=== PATIENT | male | born 1945 | race Caucasian/White ===

== ENCOUNTER → 2018-01-07 | Outpatient (CLI) | payer MEDICARE ==
[~2018-01-07] MED LIST: ASP81CT PO; ASPI-875 PO; CLIN-81 PO; HYDR25TA4 PO; INSU100I14 SQ; INSU100V6 SQ; LEVO200T30 PO; LOSA1TAB19 PO; LVT.025T PO; METF-380 PO; OXYC-12 PO; SIMV40TA4 PO; [UNRECOGNIZED DRUG - OTHER] PO; lantus SC; synthroid PO; victoza PO
--- NOTE | 2018-01-07 17:58 | Diagnostic Imaging Report ---
INDICATION: Right-sided hip pain posteriorly. TIME OF EXAM: 05:04 p.m. FINDINGS: The SI joints have a normal appearance. No sclerosis, osseous erosion, or ankylosis is identified. There are postop changes in the lower lumbosacral spine. Both hips show normal femoroacetabular alignment. Femoral heads and necks are intact. No fractures are seen. IMPRESSION: No acute abnormality is detected. Dictated by: Dictated on workstation # [id number]
== END ==
LOC: RAD 16:25
PROVIDERS: ATTEND Family Medicine
DX: M25.551 Pain in right hip (principal)
CPT/HCPCS: 72202

== ENCOUNTER → 2018-01-20 | Outpatient (CLI) | payer MEDICARE, OTHER ==
--- NOTE | 2018-01-20 12:24 | Diagnostic Imaging Report ---
PROCEDURE: US Abdomen, limited. TECHNIQUE: Multiple real-time grayscale images were obtained over the abdomen in various projections. INDICATION: Right upper quadrant abdominal pain. FINDINGS: The liver is enlarged at 20 cm. Liver does show increased echogenicity consistent with hepatic steatosis. No discrete liver mass is identified. The gallbladder is surgically absent. Extrahepatic bile duct is obscured by bowel gas. No intrahepatic ductal dilatation is seen. The pancreas is obscured by bowel gas. The right kidney is unremarkable. There is no ascites. IMPRESSION: 1. Hepatomegaly and hepatic steatosis. 2. Status post cholecystectomy. Dictated by: Dictated on workstation # [id number]
== END ==
LOC: RAD 07:34
PROVIDERS: ATTEND Family Medicine
DX: K76.0 Fatty (change of) liver, not elsewhere classified (principal); Z90.49 Acquired absence of other specified parts of digestive tract
CPT/HCPCS: 76705

== ENCOUNTER → 2021-08-28 | Outpatient (CLI) | payer MEDICARE, OTHER ==
--- NOTE | 2021-08-28 16:00 | Diagnostic Imaging Report ---
INDICATION: Left hip pain. TIME OF EXAM: 02:45 p.m. FINDINGS: Two views of the left hip demonstrate normal femoroacetabular alignment. Joint space is well maintained. Femoral head and neck are intact. No fractures are seen. IMPRESSION: No acute bony abnormality is detected. Dictated by: Dictated on workstation # [id number]
== END ==
LOC: RAD 14:25
PROVIDERS: ATTEND Family Medicine
DX: M25.552 Pain in left hip (principal)
CPT/HCPCS: 73502

== ENCOUNTER → 2022-03-06 | Outpatient (CLI) | payer MEDICARE | LOC: CARD 10:00 | PROVIDERS: ATTEND Family Medicine | DX: I35.0 Nonrheumatic aortic (valve) stenosis (principal); I51.7 Cardiomegaly | CPT/HCPCS: 93306 ==

== ENCOUNTER → 2022-04-19 | Outpatient (CLI) | payer MEDICARE ==
--- NOTE | 2022-04-20 08:29 | Diagnostic Imaging Report ---
INDICATION: Peripheral vascular disease Blood pressure recorded of the brachial arteries and in the posterior tibial and dorsalis pedis of both ankles. Ankle brachial index on the right is 1.3, and on the left is 1.1. IMPRESSION: Normal bilateral ankle brachial indices. Dictated by: Dictated on workstation # [id number]
== END ==
LOC: RAD 13:00
PROVIDERS: ATTEND Family Medicine
DX: I73.9 Peripheral vascular disease, unspecified (principal); E11.9 Type 2 diabetes mellitus without complications; I10 Essential (primary) hypertension
CPT/HCPCS: 93922